=== PATIENT | male | born 1935 | race Caucasian/White ===

== ENCOUNTER 2016-08-25 12:51 | Emergency (ER) | payer MEDICARE, BC ==
[~2016-08-25] VITALS: Ht 167.6 cm; Wt 77.3 kg
[~2016-08-25 12:51] MED LIST: ALLOPURINOL100 MG PO; BETAPACE 80MG80 MG PO; CALCIUM 600 PLU1 TAB PO; CLOPIDOGREL PO; ECOTRIN325 MG PO; ELIQUIS 5MG PO; FISH OIL CONC1000 MG PO; FISH OIL1000 MG PO; GARLIC SUPPLEM300 MG PO; GLUCOPHAGE500 MG/TAB PO; HCTZ 25MG25 MG PO; HYDROCHLOR50 MG PO; LEVITRA20 MG PO; LISINOPRIL10 MG PO; LISINOPRIL20 MG PO; LISINOPRIL40 MG PO; LOPRESSOR 225 MG/TAB PO; LOW DOSE ASPIRI81 MG PO; MVI; MVI PO; NATURAL E400 IU PO; NATURE'S BLE1000 MCG PO; NEURONTIN300 MG/CAP PO; NITROSTAT0.4 MG/TAB SL; OS-CAL 500 + D1 TAB PO; PEPCID 20MG TAB20 MG PO; PRADAXA75 MG PO; PRILOSEC 20MG20 MG PO; SOTALOL; VITAMIN A PO; VITAMIN B COMPL1 TA1 PO; VITAMIN C500 MG PO; VITAMIN D1000 IU PO; WARFARIN SODIUM4 MG PO; WARFARIN SODIUM5 MG PO; ZOCOR 20MG20 MG PO; ZYRTEC 10MG10 MG PO
[2016-08-25 12:54] VITALS: TEMP 98.1
[2016-08-25 14:34] LABS: BASO % 0.4 % (0.0-2.0); EOS # 0.2 (0.0-0.7); EOS % 3.4 % (0-4.0); GRAN # 2.9 (1.4-6.5); GRAN % 53.8 % (42.2-75.2); HEMATOCRIT 34.1 % (42.0-52.0); HEMOGLOBIN 12.5 g/dl (13.5-18.0); LYMPH # 1.6 (1.2-3.4); LYMPH % 29.8 % (20.0-51.0); MEAN CELL VOLUME 87 fl (80.0-100.0); MEAN CORPUSCULAR HEMOGLOBIN 32 pg (27.0-31.0); MEAN CORPUSCULAR HGB CONC 37 g/dl (33.0-37.0); MEAN PLATELET VOLUME 10.4 fl (7.4-10.4); MONO # 0.7 (0.1-0.6); MONO % 12.2 % (1.7-9.3); PLATELET COUNT 95 K/mm3 (130-400); REDCELL DISTRIBUTION WIDTH-CV 13.3 % (11.5-14.5); WHITE BLOOD COUNT 5.3 K/mm3 (4.8-10.8)
[2016-08-25 14:58] LABS: ADJUSTED CALCIUM 8.7 mg/dL (8.4-10.2); ALBUMIN 3.9 gm/dL (3.5-5.0); BILIRUBIN,TOTAL 2.2 mg/dL (0.0-1.0); CALCIUM 8.6 mg/dL (8.4-10.2); CREATININE, serum 1.04 mg/dL (0.66-1.25); POTASSIUM 3.8 mmol/L (3.4-5.0); TOTAL PROTEIN 6.1 gm/dL (6.4-8.2)
[2016-08-25 16:10] VITALS: BP 166/94; PULSE 75
== END 2016-08-25 16:15 | disposition home or self-care (01) ==
LOC: COL.ER 12:51
PROVIDERS: Physician Assistant
DX: M54.89 Other dorsalgia (principal); R26.81 Unsteadiness on feet; I25.10 Atherosclerotic heart disease of native coronary artery without angina pectoris; I10 Essential (primary) hypertension; Z87.891 Personal history of nicotine dependence; Z85.820 Personal history of malignant melanoma of skin; C79.51 Secondary malignant neoplasm of bone; C79.31 Secondary malignant neoplasm of brain; C78.00 Secondary malignant neoplasm of unspecified lung
CPT/HCPCS: J7030; Q9967

== ENCOUNTER 2017-01-10 08:30 | Outpatient (RCR) | payer MEDICARE, BC ==
[~2017-01-10 08:30] MED LIST changes: -ALLOPURINOL100 MG PO; -GARLIC SUPPLEM300 MG PO; +LEADER GARLIC400 MG PO; -LISINOPRIL10 MG PO; -VITAMIN A PO; +VITAMIN A10k PO; +ZESTRIL 10MG10 MG PO; +ZYLOPRIM 100MG100 MG PO
[2017-01-23] MEDS ORDERED: VITAMIN D31000 I1 PO (08:24)
[2017-01-23] MEDS ORDERED: EPA FISH OIL1 SGL PO (08:26)
[2017-01-23] MEDS ORDERED: PREDNISONE10 MG PO (08:27)
[2017-01-23] MEDS ORDERED: LEVITRA20 MG PO (08:29)
== END 2017-01-23 ==
LOC: MKS.ESL.PT
DX: R26.9 Unspecified abnormalities of gait and mobility (principal); W19.XXXD Unspecified fall, subsequent encounter
CPT/HCPCS: G8990-GO; G8990-GP; G8991-GO; G8991-GP; G8992-GP

== ENCOUNTER 2017-01-23 06:34 | Day surgery (SDC) | payer MEDICARE, BC ==
[~2017-01-23] VITALS: Ht 167.7 cm; Wt 79.5 kg
[2017-01-23 06:56] VITALS: BP 145/83; PULSE 71; TEMP 97.5
[2017-01-23 07:14] LABS: HEMOGLOBIN 13.4 g/dl (13.5-18.0); MEAN CELL VOLUME 92 fl (80.0-100.0); MEAN CORPUSCULAR HEMOGLOBIN 32 pg (27.0-31.0); MEAN CORPUSCULAR HGB CONC 34 g/dl (33.0-37.0); MEAN PLATELET VOLUME 10.9 fl (7.4-10.4); PLATELET COUNT 85 K/mm3 (130-400); RED BLOOD COUNT 4.23 M/mm3 (4.20-5.60); WHITE BLOOD COUNT 6.3 K/mm3 (4.8-10.8)
[2017-01-23 07:24] LABS: INR 1.5 (0.8-3.0); PROTHROMBIN TIME 16.8 SECONDS (9.7-12.8)
[2017-01-23 07:28] LABS: CALCIUM 9.1 mg/dL (8.4-10.2); CREATININE, serum 1.07 mg/dL (0.66-1.25); POTASSIUM 3.9 mmol/L (3.4-5.0)
[2017-01-23] MEDS ORDERED: VITAMIN D31000 I1 PO (08:24)
[2017-01-23] MEDS ORDERED: EPA FISH OIL1 SGL PO (08:26)
[2017-01-23] MEDS ORDERED: PREDNISONE10 MG PO (08:27)
[2017-01-23] MEDS ORDERED: LEVITRA20 MG PO (08:29)
[2017-01-23 09:29] VITALS: BP 130/778; PULSE 76
[2017-01-23 09:30] VITALS: BP 130/78; PULSE 76
[2017-01-23 09:45] VITALS: BP 128/87; PULSE 76
[2017-01-23 10:00] VITALS: BP 129/84; PULSE 72
[2017-01-23 10:15] VITALS: BP 135/85; PULSE 72
== END 2017-01-23 10:53 | disposition home or self-care (01) ==
LOC: COL.CAR 06:34
PROVIDERS: Internal Medicine Cardiovascular Disease
DX: I48.0 Paroxysmal atrial fibrillation (principal); I25.10 Atherosclerotic heart disease of native coronary artery without angina pectoris; E11.9 Type 2 diabetes mellitus without complications; C43.9 Malignant melanoma of skin, unspecified; C79.9 Secondary malignant neoplasm of unspecified site; E78.5 Hyperlipidemia, unspecified; I10 Essential (primary) hypertension; I49.5 Sick sinus syndrome; Z86.73 Personal history of transient ischemic attack (TIA), and cerebral infarction without residual deficits; M10.9 Gout, unspecified; Z79.84 Long term (current) use of oral hypoglycemic drugs; Z87.891 Personal history of nicotine dependence; Z79.01 Long term (current) use of anticoagulants; Z95.0 Presence of cardiac pacemaker; Z95.5 Presence of coronary angioplasty implant and graft
CPT/HCPCS: J2704

== ENCOUNTER 2017-03-13 10:16 | Inpatient (IN) | payer MEDICARE, BC ==
[~2017-03-13] VITALS: Ht 167.6 cm; Wt 80.1 kg
[~2017-03-13 10:16] MED LIST changes: +EPA FISH OIL1 SGL PO; +PREDNISONE10 MG PO; +VITAMIN D31000 I1 PO
[2017-03-13] MEDS ORDERED: CLEOCIN HCL300 MG PO (11:07)
[2017-03-13 11:29] LABS: BASO % 0.3 % (0.0-2.0); EOS # 0.1 (0.0-0.7); EOS % 1.5 % (0-4.0); GRAN # 5.1 (1.4-6.5); GRAN % 75.5 % (42.2-75.2); LYMPH % 15.3 % (20.0-51.0); MEAN CELL VOLUME 90 fl (80.0-100.0); MEAN CORPUSCULAR HEMOGLOBIN 31 pg (27.0-31.0); MEAN CORPUSCULAR HGB CONC 35 g/dl (33.0-37.0); MEAN PLATELET VOLUME 10.3 fl (7.4-10.4); MONO # 0.5 (0.1-0.6); MONO % 6.8 % (1.7-9.3); PLATELET COUNT 110 K/mm3 (130-400); RED BLOOD COUNT 4.79 M/mm3 (4.20-5.60); REDCELL DISTRIBUTION WIDTH-CV 13.6 % (11.5-14.5)
[2017-03-13 11:35] LABS: INR 1.4 (0.8-3.0); PROTHROMBIN TIME 16.5 SECONDS (9.7-12.8)
[2017-03-13 11:38] LABS: PARTIAL THROMBOPLASTIN TIME 34.1 SECONDS (26.0-37.0)
[2017-03-13 11:41] LABS: ALBUMIN 4.8 gm/dL (3.5-5.0); BILIRUBIN,TOTAL 1.7 mg/dL (0.0-1.0); C-REACTIVE PROTEIN 3.3 mg/dL (0.0-0.9); CALCIUM 10.3 mg/dL (8.4-10.2); CREATININE, serum 0.96 mg/dL (0.66-1.25); POTASSIUM 4.2 mmol/L (3.4-5.0); TOTAL PROTEIN 7.5 gm/dL (6.4-8.2)
[2017-03-13 11:52] LABS: ERYTHROCYTE SEDIMENTATION RATE 18 mm/hr (0-30)
[2017-03-13 12:58] VITALS: BP 119/98; PULSE 80; TEMP 97.6
[2017-03-13] MEDS ORDERED: B-121000 MCG PO (13:25)
[2017-03-13] MEDS ORDERED: PEPCID 20MG TAB20 MG PO (13:26)
[2017-03-13 15:17] LABS: PH 6 (5-8); SQUAMOUS EPITHELIAL 0-2 /hpf; URINE APPEARANCE Clear; URINE BACTERIA Rare /hpf; URINE BILIRUBIN Negative (NEGATIVE); URINE BLOOD Negative (NEGATIVE); URINE COLOR Straw; URINE GLUCOSE 3+ (NEGATIVE); URINE KETONE Negative (NEGATIVE); URINE LEUKOCYTE ESTERASE 1+ (NEGATIVE); URINE NITRATE Negative (NEGATIVE); URINE PROTEIN(semi-quant) 1+ (NEGATIVE); URINE UROBILINOGEN Negative (NEGATIVE)
[2017-03-13 16:00] VITALS: BP 187/88; PULSE 77; TEMP 98.7
[2017-03-13 16:26] LABS: COLLECTION METHOD CLEAN CATCH
[2017-03-13 20:18] VITALS: BP 147/73; PULSE 77; TEMP 98.7
[2017-03-14 02:23] VITALS: BP 123/59; PULSE 79; TEMP 97.6
[2017-03-14 06:59] VITALS: BP 162/73; PULSE 70; TEMP 98.4
[2017-03-14 09:44] VITALS: BP 128/79; PULSE 77; TEMP 97.1
[2017-03-14 14:16] VITALS: BP 134/68; PULSE 74; TEMP 98.2
[2017-03-14 18:54] VITALS: BP 136/96; PULSE 73; TEMP 97.5
[2017-03-14 23:23] VITALS: BP 172/83; PULSE 89; TEMP 97.9
[2017-03-15 06:26] VITALS: BP 153/76; PULSE 69; TEMP 98.1
[2017-03-15 06:28] LABS: BASO % 0.3 % (0.0-2.0); EOS # 0.2 (0.0-0.7); EOS % 2.8 % (0-4.0); GRAN # 3.7 (1.4-6.5); GRAN % 60.7 % (42.2-75.2); LYMPH # 1.6 (1.2-3.4); LYMPH % 25.6 % (20.0-51.0); MEAN CELL VOLUME 90 fl (80.0-100.0); MEAN CORPUSCULAR HGB CONC 35 g/dl (33.0-37.0); MEAN PLATELET VOLUME 10.4 fl (7.4-10.4); MONO # 0.6 (0.1-0.6); MONO % 9.6 % (1.7-9.3); PLATELET COUNT 91 K/mm3 (130-400); RED BLOOD COUNT 4.07 M/mm3 (4.20-5.60); REDCELL DISTRIBUTION WIDTH-CV 13.8 % (11.5-14.5)
[2017-03-15 06:43] LABS: HEMATOCRIT 36.5 % (42.0-52.0); HEMOGLOBIN 12.8 g/dl (13.5-18.0); MEAN CORPUSCULAR HEMOGLOBIN 31 pg (27.0-31.0)
[2017-03-15 06:45] LABS: CALCIUM 8.5 mg/dL (8.4-10.2); CREATININE, serum 0.97 mg/dL (0.66-1.25); POTASSIUM 3.6 mmol/L (3.4-5.0)
[2017-03-15 10:50] VITALS: BP 132/69; PULSE 71; TEMP 97.9
[2017-03-15 14:12] VITALS: BP 147/63; PULSE 76; TEMP 99.2
[2017-03-15 17:05] VITALS: BP 164/90; PULSE 77; TEMP 98
[2017-03-15 21:12] VITALS: BP 167/86; PULSE 70; TEMP 98.3
[2017-03-16 02:12] VITALS: BP 153/59; PULSE 81; TEMP 98.4
[2017-03-16 05:58] VITALS: BP 152/83; PULSE 70; TEMP 98.5
[2017-03-16 07:10] LABS: BASO % 0.4 % (0.0-2.0); EOS # 0.2 (0.0-0.7); EOS % 2.8 % (0-4.0); GRAN # 4.2 (1.4-6.5); GRAN % 60.9 % (42.2-75.2); HEMOGLOBIN 12.2 g/dl (13.5-18.0); LYMPH # 1.7 (1.2-3.4); LYMPH % 24.9 % (20.0-51.0); MEAN CELL VOLUME 91 fl (80.0-100.0); MEAN CORPUSCULAR HEMOGLOBIN 31 pg (27.0-31.0); MEAN CORPUSCULAR HGB CONC 34 g/dl (33.0-37.0); MEAN PLATELET VOLUME 10.3 fl (7.4-10.4); MONO # 0.7 (0.1-0.6); MONO % 10.4 % (1.7-9.3); PLATELET COUNT 92 K/mm3 (130-400); REDCELL DISTRIBUTION WIDTH-CV 14.2 % (11.5-14.5)
[2017-03-16 07:24] LABS: CREATININE, serum 1.01 mg/dL (0.66-1.25); MAGNESIUM 1.5 mg/dL (1.6-2.3); POTASSIUM 3.7 mmol/L (3.4-5.0)
[2017-03-16] MEDS ORDERED: DOXYCYCLINE HY100 MG PO (07:33)
[2017-03-16] MEDS ORDERED: GLUCOTROL10 MG PO (07:34)
[2017-03-16] MEDS ORDERED: GLUCOPHAGE1000 MG PO (07:34)
[2017-03-16] MEDS ORDERED: LYRICA 50MG CAP50 MG PO (07:36)
[2017-03-16 07:43] LABS: HEMATOCRIT 35.5 % (42.0-52.0)
[2017-03-16 09:40] VITALS: BP 154/82; PULSE 78; TEMP 98.6
[2017-03-16] MEDS ORDERED: ZESTRIL 10MG10 MG PO (10:26)
[2017-03-16 13:31] VITALS: BP 142/62; PULSE 71; TEMP 98
== END 2017-03-16 14:08 | disposition home or self-care (01) | DRG 638 ==
LOC: COL.ER 10:16 → SURG 11:18
PROVIDERS: Emergency Medicine; Internal Medicine; Nurse Practitioner Family; Physician Assistant
DX: E11.628 Type 2 diabetes mellitus with other skin complications (principal); N39.0 Urinary tract infection, site not specified; L03.032 Cellulitis of left toe; E11.42 Type 2 diabetes mellitus with diabetic polyneuropathy; I48.0 Paroxysmal atrial fibrillation; I10 Essential (primary) hypertension; M10.9 Gout, unspecified; E83.42 Hypomagnesemia; E11.65 Type 2 diabetes mellitus with hyperglycemia; Z95.0 Presence of cardiac pacemaker; Z87.891 Personal history of nicotine dependence; Z85.820 Personal history of malignant melanoma of skin; Z95.5 Presence of coronary angioplasty implant and graft
CPT/HCPCS: 99223-AI; 99231-AI; 99232-AI; 99233-AI; 99239; J0692; J1815; J2060; J2543; J3370; J3475; J7030; J7050; J7512

== ENCOUNTER 2017-05-02 06:20 | Day surgery (SDC) | payer MEDICARE, BC ==
[~2017-05-02] VITALS: Ht 167.6 cm; Wt 87.9 kg
[~2017-05-02 06:20] MED LIST changes: +B-121000 MCG PO; +CLEOCIN HCL300 MG PO; +DOXYCYCLINE HY100 MG PO; +GLUCOPHAGE1000 MG PO; +GLUCOTROL10 MG PO; +LYRICA 50MG CAP50 MG PO
[2017-05-02 07:16] LABS: HEMATOCRIT 37.1 % (42.0-52.0); HEMOGLOBIN 12.4 g/dl (13.5-18.0); MEAN CELL VOLUME 95 fl (80.0-100.0); MEAN CORPUSCULAR HEMOGLOBIN 32 pg (27.0-31.0); MEAN CORPUSCULAR HGB CONC 33 g/dl (33.0-37.0); PLATELET COUNT 89 K/mm3 (130-400); RED BLOOD COUNT 3.91 M/mm3 (4.20-5.60); REDCELL DISTRIBUTION WIDTH-CV 15.8 % (11.5-14.5)
[2017-05-02 07:23] LABS: INR 1.7 (0.8-3.0); PROTHROMBIN TIME 19.5 SECONDS (9.7-12.8)
[2017-05-02 07:24] LABS: CALCIUM 8.3 mg/dL (8.4-10.2); CREATININE, serum 0.94 mg/dL (0.66-1.25); POTASSIUM 3.6 mmol/L (3.4-5.0)
[2017-05-02 07:45] VITALS: BP 139/81; PULSE 72; TEMP 97.5
[2017-05-02] MEDS ORDERED: ZESTRIL 20MG TA20 MG PO (08:15)
[2017-05-02] MEDS ORDERED: LYRICA 50MG CAP50 MG PO (08:16)
[2017-05-02] MEDS ORDERED: GLUCOTROL 5M5 MG/TAB PO (08:17)
[2017-05-02] MEDS ORDERED: GLUCOPHAGE1000 MG PO (08:17)
[2017-05-02] MEDS ORDERED: BETAPACE160 MG PO (08:48)
[2017-05-02 08:50] VITALS: BP 124/80; PULSE 70
[2017-05-02 09:15] VITALS: BP 126/85; PULSE 77
[2017-05-02 09:30] VITALS: BP 131/86; PULSE 69
[2017-05-02 09:45] VITALS: BP 147/93; PULSE 77
== END 2017-05-02 10:18 | disposition home or self-care (01) ==
LOC: COL.CAR 06:20
PROVIDERS: Internal Medicine Cardiovascular Disease
DX: I48.92 Unspecified atrial flutter (principal); I48.0 Paroxysmal atrial fibrillation; I25.10 Atherosclerotic heart disease of native coronary artery without angina pectoris; I10 Essential (primary) hypertension; I73.9 Peripheral vascular disease, unspecified; C43.9 Malignant melanoma of skin, unspecified; E11.9 Type 2 diabetes mellitus without complications; I49.5 Sick sinus syndrome; E78.2 Mixed hyperlipidemia; Z95.0 Presence of cardiac pacemaker; Z79.01 Long term (current) use of anticoagulants; Z79.84 Long term (current) use of oral hypoglycemic drugs; Z86.73 Personal history of transient ischemic attack (TIA), and cerebral infarction without residual deficits; Z87.891 Personal history of nicotine dependence; Z82.49 Family history of ischemic heart disease and other diseases of the circulatory system
CPT/HCPCS: J2704; J7030

== ENCOUNTER 2017-05-24 20:50 | Observation (INO) | payer MEDICARE, BC ==
[~2017-05-24] VITALS: Ht 167.6 cm; Wt 80.4 kg
[~2017-05-24 20:50] MED LIST changes: +BETAPACE160 MG PO; +GLUCOTROL 5M5 MG/TAB PO; +ZESTRIL 20MG TA20 MG PO
[2017-05-24 21:43] LABS: BASO % 0.4 % (0.0-2.0); EOS # 0.3 (0.0-0.7); EOS % 3.1 % (0-4.0); GRAN # 5.3 (1.4-6.5); GRAN % 62.1 % (42.2-75.2); HEMOGLOBIN 14.4 g/dl (13.5-18.0); LYMPH % 23.5 % (20.0-51.0); MEAN CELL VOLUME 93 fl (80.0-100.0); MEAN CORPUSCULAR HEMOGLOBIN 32 pg (27.0-31.0); MEAN CORPUSCULAR HGB CONC 34 g/dl (33.0-37.0); MEAN PLATELET VOLUME 11.3 fl (7.4-10.4); MONO # 0.9 (0.1-0.6); MONO % 10.4 % (1.7-9.3); PLATELET COUNT 112 K/mm3 (130-400); RED BLOOD COUNT 4.54 M/mm3 (4.20-5.60); REDCELL DISTRIBUTION WIDTH-CV 14.3 % (11.5-14.5)
[2017-05-24 21:55] LABS: ACETAMINOPHEN < 10 ug/mL (10-30); ALANINE AMINOTRANSFERASE 27 U/L (21-72); ALBUMIN 4.6 gm/dL (3.5-5.0); ALCOHOL(ethanol),MEDICAL < 10 mg/dL; ALKALINE PHOSPHATASE 81 U/L (50-136); ANION GAP 14 mmol/L (7-16); AST,SGOT 21 U/L (15-37); BLOOD UREA NITROGEN 18 mg/dL (9-20); CALCIUM 8.7 mg/dL (8.4-10.2); CARBON DIOXIDE 33 mmol/L (22-30); CHLORIDE 97 mmol/L (98-107); CREATININE, serum 1.05 mg/dL (0.66-1.25); GLUCOSE 182 mg/dL (74-106); POTASSIUM 3.1 mmol/L (3.4-5.0); SALICYLATE < 1.0 mg/dL; SODIUM 144 mmol/L (137-145); TOTAL PROTEIN 7.1 gm/dL (6.4-8.2)
[2017-05-24 22:57] LABS: COLLECTION METHOD CLEAN CATCH
[2017-05-24 23:13] LABS: PH 6 (5-8); SQUAMOUS EPITHELIAL None Seen /hpf; URINE APPEARANCE Clear; URINE BACTERIA None Seen /hpf; URINE BILIRUBIN Negative (NEGATIVE); URINE BLOOD Negative (NEGATIVE); URINE COLOR Yellow; URINE GLUCOSE 3+ (NEGATIVE); URINE KETONE Negative (NEGATIVE); URINE LEUKOCYTE ESTERASE Negative (NEGATIVE); URINE NITRATE Negative (NEGATIVE); URINE PROTEIN(semi-quant) 1+ (NEGATIVE); URINE RBC 0-2 /hpf; URINE UROBILINOGEN >=4.0 mg/dL (NEGATIVE); URINE WBC 0-2 /hpf
[2017-05-25] VITALS (7 sets, daily range): BP systolic 120–179; BP diastolic 50–73; PULSE 40–127; TEMP 97.2–99
[2017-05-25] MEDS ORDERED: LASIX 20MG TABL20 MG PO (00:50)
[2017-05-25] MEDS ORDERED: KLOR-CON SPRIN10 MEQ PO (00:51)
[2017-05-25] MEDS ORDERED: ATIVAN 0.50.5 MG/TAB PO (01:17)
[2017-05-25 07:01] LABS: CALCIUM 8.2 mg/dL (8.4-10.2); CREATININE, serum 0.91 mg/dL (0.66-1.25); POTASSIUM 3.5 mmol/L (3.4-5.0)
[2017-05-26 00:15] VITALS: PULSE 72
[2017-05-26 04:00] VITALS: BP 144/72; PULSE 85; TEMP 98.7
[2017-05-26] MEDS ORDERED: SEROQUEL 2525 MG/TAB PO (07:41)
[2017-05-26 08:07] VITALS: BP 151/77; PULSE 87; TEMP 97.1
[2017-05-26] MEDS ORDERED: DECADRON 4MG TAB4 MG PO (08:45)
[2017-05-26] MEDS ORDERED: FLOMAX 0.40.4 MG/CAP PO (10:32)
[2017-05-26 11:56] VITALS: BP 148/78; PULSE 89
== END 2017-05-26 15:21 | disposition home health service (06) ==
LOC: COL.ER 20:50 → MEDICAL 23:04
PROVIDERS: Emergency Medicine; Nurse Practitioner
DX: F02.81 Dementia in other diseases classified elsewhere, unspecified severity, with behavioral disturbance (principal); C79.51 Secondary malignant neoplasm of bone; C78.00 Secondary malignant neoplasm of unspecified lung; C79.31 Secondary malignant neoplasm of brain; R41.82 Altered mental status, unspecified; E87.6 Hypokalemia; I73.9 Peripheral vascular disease, unspecified; I10 Essential (primary) hypertension; I25.10 Atherosclerotic heart disease of native coronary artery without angina pectoris; K21.9 Gastro-esophageal reflux disease without esophagitis; I48.0 Paroxysmal atrial fibrillation; E11.65 Type 2 diabetes mellitus with hyperglycemia; E11.42 Type 2 diabetes mellitus with diabetic polyneuropathy; R33.9 Retention of urine, unspecified; M10.9 Gout, unspecified; Z95.5 Presence of coronary angioplasty implant and graft; Z95.0 Presence of cardiac pacemaker; Z79.01 Long term (current) use of anticoagulants; Z79.52 Long term (current) use of systemic steroids; Z86.73 Personal history of transient ischemic attack (TIA), and cerebral infarction without residual deficits; Z85.820 Personal history of malignant melanoma of skin; Z87.891 Personal history of nicotine dependence
CPT/HCPCS: G0378; G8987-GO; G8988-GO; J1815; J3475; J8540